=== PATIENT | female | born 1950 | race Two or more races ===

== ENCOUNTER 2020-01-12 11:00 | Inpatient (IN) | payer OTHER ==
[~2020-01-12] VITALS: Ht 157.5 cm; Wt 58.1 kg
[2020-01-12] MEDS ORDERED: ALBUTEROL (13:30)
[2020-01-12] MEDS ORDERED: ALLEGRA PO (13:31)
[2020-01-12] MEDS ORDERED: SINGULAR PO (13:32)
[2020-01-12] MEDS ORDERED: PEPCID20 MG PO (13:33)
[2020-01-12] MEDS ORDERED: BONIVA (13:34)
[2020-01-31] MEDS ORDERED: INTESTINEX680 M1 PO ×2 (09:34)
[2020-01-31] MEDS ORDERED: OMEPRAZOLE20 MG PO ×2 (09:34)
[2020-01-31] MEDS ORDERED: ACETAMINOPHEN500 M2 PO ×2 (09:34)
[2020-01-31] MEDS ORDERED: NEURONTIN300 MG PO ×2 (09:34)
== END 2020-01-31 12:40 | disposition home or self-care (01) | DRG 331 ==
LOC: SURH 01-18 07:00 → EDBD 01-18 11:00 → O/R 01-28 07:05 → SURH 01-28 10:00 → SURG 01-28 15:15
PROVIDERS: ADMIT Surgery
PROC: 07BB4ZX Excision of Mesenteric Lymphatic, Percutaneous Endoscopic Approach, Diagnostic (ICD-10-PCS; 2020-01-28)
PROC: 0DTF4ZZ Resection of Right Large Intestine, Percutaneous Endoscopic Approach (ICD-10-PCS; principal; 2020-01-28 10:00)
DX: D12.0 Benign neoplasm of cecum (principal); R59.0 Localized enlarged lymph nodes; K63.89 Other specified diseases of intestine

== ENCOUNTER 2020-01-27 10:25 | Day surgery (SDC) | payer OTHER ==
[~2020-01-27 10:25] MED LIST: ALBUTEROL; ALLEGRA PO; BONIVA; PEPCID20 MG PO; SINGULAR PO
== END 2020-01-27 15:25 | disposition home or self-care (01) ==
LOC: AMB-ENDOS 10:25
DX: D12.0 Benign neoplasm of cecum (principal)

== ENCOUNTER 2021-02-19 08:00 | Day surgery (SDC) | payer OTHER ==
[~2021-02-19 08:00] MED LIST changes: +ACETAMINOPHEN500 M2 PO; +INTESTINEX680 M1 PO; +NEURONTIN300 MG PO; +OMEPRAZOLE20 MG PO
== END 2021-02-19 09:00 | disposition home or self-care (01) ==
LOC: AMB-ENDOS 08:00
PROVIDERS: ATTEND Surgery
DX: K62.89 Other specified diseases of anus and rectum (principal); Z20.822 Contact with and (suspected) exposure to COVID-19

== ENCOUNTER 2023-05-28 10:02 | Outpatient (CLI) | payer OTHER | END 2023-05-28 10:17 | disposition home or self-care (01) | LOC: SONOGRAMA 10:02 | PROVIDERS: ATTEND Orthopaedic Surgery | DX: M25.512 Pain in left shoulder (principal) ==

== ENCOUNTER 2023-06-26 12:47 | Outpatient (CLI) | payer OTHER | END 2023-06-26 12:48 | disposition home or self-care (01) | LOC: NUCLEAR 12:47 | PROVIDERS: ATTEND Internal Medicine | DX: M81.0 Age-related osteoporosis without current pathological fracture (principal) ==